=== PATIENT | male | born 1975 | race Caucasian/White ===

== ENCOUNTER 2017-01-01 19:49 | Emergency (ER) | payer BC ==
[2017-01-01 20:01] VITALS: BP 168/101
[2017-01-01] MEDS ORDERED: Bacitracin Oint 1 GM U/D Packet TOP ONE (20:47)
[2017-01-01] MEDS ORDERED: Diphtheria,Pertussis(Acell),Tetanus Vaccine 0.5 ML SDV IM ONE (20:47)
--- NOTE | 2017-01-01 20:52 | EDM.PDOC ---
ED HPI GENERAL MEDICAL PROBLEM - General Chief Complaint: Laceration Stated Complaint: RT THUMB CUT Time Seen by Provider: 01/01/17 20:22 Source of Information: Reports: Patient History Limitations: Reports: No Limitations - History of Present Illness INITIAL COMMENTS - FREE TEXT/NARRATIVE: History of present illness: [41-year-old male presenting with a right thumb laceration. His [id number] had a steak knife and he quickly grabbed to get away from him in his boy just pulled a knife and sliced his thumb. This is the pad of his right thumb with the 2 cm laceration] Review of systems: As per history of present illness and below otherwise all systems reviewed and negative. Past medical history: As per history of present illness and as reviewed below otherwise noncontributory. Surgical history: As per history of present illness and as reviewed below otherwise noncontributory. Social history: No reported history of drug or alcohol abuse. Family history: As per history of present illness and as reviewed below otherwise noncontributory. Physical exam: HEENT: Atraumatic, normocephalic, Lungs: Clear to auscultation, Heart: S1S2, regular Extremities: He has a 2 cm transverse clean laceration across the pad of his right thumb Diagnostics: [] Therapeutics: [The thumb was prepped and draped in usual fashion 1% lidocaine without epi was used for local infiltration The wound was closed with 4-0 Ethilon in a simple running fashion Dressing applied Tetanus given] Impression: [2 cm laceration of the right thumb] Plan: [Sutures out in 10 days follow-up sooner if signs of infection occur] Definitive disposition and diagnosis as appropriate pending reevaluation and review of above. Right Hand Pain Score (Numeric/FACES): 6 - Related Data Allergies Allergy/AdvReac Type Severity Reaction Status Date / Time No Known Allergies Allergy Verified 11/22/13 23:31 Home Meds: Home Meds Sertraline [Zoloft] 50 mg PO DAILY 01/01/17 [History] Past Medical History - Past Health History Medical/Surgical History: Denies Medical/Surgical History - Infectious Disease History Infectious Disease History: Reports: Chicken Pox - Past Surgical History Musculoskeletal Surgical History: Reports: Other (See Below) Other Musculoskeletal Surgeries/Procedures:: right thumb reattached 23 years ago Social & Family History - Caffeine Use Caffeine Use: Reports: Coffee, Soda - Alcohol Use Days Per Week of Alcohol Use: 7 Number of Drinks Per Day: 8 Total Drinks Per Week: 56 - Recreational Drug Use Recreational Drug Use: No ED ROS GENERAL - Review of Systems Review Of Systems: ROS reveals no pertinent complaints other than HPI. ED EXAM, SKIN/RASH Exam: See Below Course - Vital Signs Last Recorded V/S: Last Vital Signs Temp 36.6 C 01/01/17 19:59 Pulse 86 01/01/17 19:59 Resp 16 01/01/17 19:59 BP 168/101 H 01/01/17 19:59 Pulse Ox 95 01/01/17 19:59 - Orders/Labs/Meds Orders: Active Orders 24 hr Category Date Time Status Vaccines to be Administered [RC] PER UNIT ROUTINE Care 01/01/17 20:47 Active Meds: Medications Discontinued Medications Generic Name Dose Route Start Last Admin Trade Name Bandar PRN Reason Stop Dose Admin Bacitracin 1 dose 01/01/17 20:47 Bacitracin Oint 1 Gm TOP 01/01/17 20:48 ONETIME ONE Diphtheria/Tetanus/Acell Pertussis 0.5 ml 01/01/17 20:47 Adacel IM 01/01/17 20:48 .ONCE ONE Lidocaine HCl 5 ml 01/01/17 20:26 01/01/17 20:36 Xylocaine-Mpf 1% INJECT 01/01/17 20:27 5 ml ONETIME ONE Administration Lidocaine HCl Confirm 01/01/17 20:28 01/01/17 20:36 Xylocaine-Mpf 1% Administered 01/01/17 20:29 Not Given Dose 5 ml .ROUTE .STK-MED ONE Departure - Departure Time of Disposition: 20:51 Disposition: Home, Self-Care 01 Condition: Good Clinical Impression: Laceration of thumb Qualifiers: Encounter type: initial encounter Damage to nail status: without damage Foreign body presence: without foreign body Laterality: right Qualified Code(s) : S61.011A - Laceration without foreign body of right thumb without damage to nail, initial encounter - Discharge Information Forms: ED Department Discharge Additional Instructions: You can follow-up in the clinic in 10 days for suture removal. Follow-up sooner if any signs of infection occur. This is unlikely to occur. - My Orders Last 24 Hours: My Active Orders 01/01/17 20:47 Vaccines to be Administered [RC] PER UNIT ROUTINE - Assessment/Plan Last 24 Hours: My Active Orders 01/01/17 20:47 Vaccines to be Administered [RC] PER UNIT ROUTINE
== END 2017-01-01 21:15 | disposition home or self-care (01) ==
LOC: JP.ED 19:49
DX: S61.011A Laceration without foreign body of right thumb without damage to nail, initial encounter (principal); Z23 Encounter for immunization; Z79.899 Other long term (current) drug therapy; W26.0XXA Contact with knife, initial encounter
CPT/HCPCS: 12001; 90471; 90715; 99283-25

== ENCOUNTER 2023-08-22 06:33 | Day surgery (SDC) | payer BC, OTHER ==
[2023-08-22] MEDS: Sodium Chloride 0.9% 1,000 ML IV SCH (07:17)
[2023-08-22] MEDS ORDERED: fentaNYL 50 MCG/ML SDV ONE (07:21)
[2023-08-22] MEDS ORDERED: Midazolam 1 MG/ML 2 ML SDV ONE (07:21)
[2023-08-22] MEDS ORDERED: Propofol 200 MG/20 ML SDV ONE ×2 (07:21→07:55)
[2023-08-22 09:02] VITALS: BP 121/77; PULSE 79
== END 2023-08-22 09:07 | disposition home or self-care (01) ==
LOC: JP.SDS 06:33
PROVIDERS: ATTEND Surgery
DX: D12.2 Benign neoplasm of ascending colon (principal); D12.8 Benign neoplasm of rectum; I10 Essential (primary) hypertension; E11.9 Type 2 diabetes mellitus without complications
CPT/HCPCS: 45385; 88305; J2250; J2704; J3010; J7030